=== PATIENT | female | born 1930 | race Caucasian/White ===

== ENCOUNTER 2018-06-27 18:49 | Inpatient (IN) | payer OTHER ==
[~2018-06-27] VITALS: Ht 129.5 cm; Wt 40.8 kg
[2018-06-27] MEDS ORDERED: CLONAZEPAM1 MG (19:19)
[2018-06-27] MEDS ORDERED: GABAPENTIN100 MG (19:20)
[2018-06-27] MEDS ORDERED: QUETIAPINE FUMA50 MG (19:20)
[2018-06-27] MEDS ORDERED: CARBIDOPA25 MG (19:21)
[2018-06-27] MEDS ORDERED: PRILOSEC10 MG (19:21)
[2018-06-27] MEDS ORDERED: ZANTAC150 M3 (19:21)
== END 2018-07-04 19:06 | disposition home or self-care (01) | DRG 177 ==
LOC: ER 18:49 → MEDJ 06-28 00:23 → SEC-K 06-28 00:23 → MEDJ 06-28 09:51
PROVIDERS: ADMIT Internal Medicine
PROC: 3E0F7GC Introduction of Other Therapeutic Substance into Respiratory Tract, Via Natural or Artificial Opening (ICD-10-PCS; principal; 2018-06-28)
PROC: 8E0ZXY6 Isolation (ICD-10-PCS; 2018-06-30)
PROC: 4A033R1 Measurement of Arterial Saturation, Peripheral, Percutaneous Approach (ICD-10-PCS; 2018-06-30)
PROC: B54PZZZ Ultrasonography of Bilateral Upper Extremity Veins (ICD-10-PCS; 2018-07-04)
DX: J69.0 Pneumonitis due to inhalation of food and vomit (principal); B37.1 Pulmonary candidiasis; N39.0 Urinary tract infection, site not specified; J15.1 Pneumonia due to Pseudomonas; J45.998 Other asthma; G20 Parkinson's disease; I10 Essential (primary) hypertension; E03.8 Other specified hypothyroidism; Z74.01 Bed confinement status; B96.29 Other Escherichia coli [E. coli] as the cause of diseases classified elsewhere

== ENCOUNTER 2018-07-11 08:48 | Inpatient (IN) | payer OTHER ==
[~2018-07-11] VITALS: Ht 157.5 cm; Wt 47.2 kg
[~2018-07-11 08:48] MED LIST: CARBIDOPA25 MG; CLONAZEPAM1 MG; GABAPENTIN100 MG; PRILOSEC10 MG; QUETIAPINE FUMA50 MG; ZANTAC150 M3
--- NOTE | 2018-07-11 14:31 | NUR ---
08:33AM- SE RECIBE PACIENTE DE PERSONAL DE AMBULANCIA LETARGICA, NO RESPONDIENDO A ESTIMULOS Y/O COMANDO DE VOZ. SE CONECTAR A MONITOR CARDIACO PRESENTANDO VITALES DE BP:75/51 P:57 T:97.5 R:29 P:69. SE SUCCIONA PACIENTE POR PERSONAL DE TERAPIA, SE CHELITA MUESTRAS DE ABG'S POR PERSONAL DE TERAPIA Y SE CHELITA MUESTRAS DE FROY BAJO MEDIDAS ASEPTICAS CBC, PRO BNP, CMP, PT+INR, PTT, CK MB, TROPONINA 1, CARDIAC PRO Y BLOOD CULTURE X3. SE CHELITA MUESTRAS DE ESPUTUM, UC Y UA DAMON ORDENADO. SE ADMINISTRA MEDICAMENTO SOLUMEDROL 125MG Y DEMARCO SERIE DE TERAPIAS. SE CANALIZA POR DOS PATENTES Y LIBRES DE EDEMA CON ANGIO #18 Y #20 SE ADMINISTRA UN 0.9NSS AT 100ML/HR Y MEDICAMENTO LEVOPHED 4MG/250ML AT 10ML/HR. SE CONSULTA A INTERNISTA DR. Ratna TEJADA, SE REALIZA PLACA PORTABLE, SE COLOCA NON REBREATHING MASK AL 100%. SE REALIZA EKG DAMON ORDEN MEDICA Y SE INSERTA [place] DE CATETER #16 BAJO MEDIDAS ESTERILES Y ASEPTICAS, SE OBSERVA ORINA AMARILLA-NARANJA EL CUAL SE RECOGEN MUESTRAS. SE MANTIENE BAJO OBSERVACION, CONECTADA A MONITOR CARDIACO, CON BARANDAS ELEVEDAS Y BOTON ACCESIBLE S LANDY OFRECE CUIDADO DE PIEL Y SE LE COLOCA EN EL AREA SACRAL ALLEVYN PATCH. SE ALEN TRANQUILA EN CAMA Y CON BARANDAS ELEVADAS.
--- NOTE | 2018-07-11 16:14 | NUR ---
SE RECIBE PTE LETARGICA ANQUILOSADA EN CAMA CON BARANDAS ELEVADAS.SE RECIBE PTE CANALIZADA EN MANO DERECHA Y BRAZO PAUL AREAS LIBRES DE EDEMA Y DE ENROJECIMIENTO. PTE CON NON REBREATHING AL 100%, SE RECIBE PTE CON DRIP DE LEVOPHED 4MG/250ML BAJANDO A 10ML/HR. SE RECIBE PTE CON DRIP DE .9NSS BAJANDO A 100ML/HR. SE RECIBE PTE CON [place] DRENANDO AL MOMENTO 25ML DE ORINA COLOR AMARILLO INTENSO.SE OBSERVA EDEMA EN EXTREMIDADES SUPERIORES E INFERIORES. PTE SE MANTIENE BAJO OBSERVACION POR CAMBIOS.
== END 2018-08-03 11:32 | disposition expired | DRG 177 ==
LOC: ER 08:48 → ICU-2 18:05 → ICU 07-12 13:52 → MEDJ 07-23 19:16
PROVIDERS: ADMIT Internal Medicine
PROC: 02HV33Z Insertion of Infusion Device into Superior Vena Cava, Percutaneous Approach (ICD-10-PCS; 2018-07-11)
PROC: 3E0F7GC Introduction of Other Therapeutic Substance into Respiratory Tract, Via Natural or Artificial Opening (ICD-10-PCS; 2018-07-11)
PROC: 4A033R1 Measurement of Arterial Saturation, Peripheral, Percutaneous Approach (ICD-10-PCS; 2018-07-11)
PROC: BW24ZZZ Computerized Tomography (CT Scan) of Chest and Abdomen (ICD-10-PCS; 2018-07-11)
PROC: 0T9B70Z Drainage of Bladder with Drainage Device, Via Natural or Artificial Opening (ICD-10-PCS; 2018-07-11)
PROC: B246ZZZ Ultrasonography of Right and Left Heart (ICD-10-PCS; 2018-07-12)
PROC: 8E0ZXY6 Isolation (ICD-10-PCS; 2018-07-13)
PROC: 3E0336Z Introduction of Nutritional Substance into Peripheral Vein, Percutaneous Approach (ICD-10-PCS; 2018-07-13)
PROC: 0W993ZX Drainage of Right Pleural Cavity, Percutaneous Approach, Diagnostic (ICD-10-PCS; principal; 2018-07-20)
PROC: 30233N1 Transfusion of Nonautologous Red Blood Cells into Peripheral Vein, Percutaneous Approach (ICD-10-PCS; 2018-07-23)
PROC: 4A12X4Z Monitoring of Cardiac Electrical Activity, External Approach (ICD-10-PCS; 2018-07-23)
PROC: 0W9930Z Drainage of Right Pleural Cavity with Drainage Device, Percutaneous Approach (ICD-10-PCS; 2018-07-28)
DX: J69.0 Pneumonitis due to inhalation of food and vomit (principal); J80 Acute respiratory distress syndrome; R65.21 Severe sepsis with septic shock; B37.1 Pulmonary candidiasis; J91.8 Pleural effusion in other conditions classified elsewhere; E87.2 Acidosis; J93.81 Chronic pneumothorax; G20 Parkinson's disease; F02.80 Dementia in other diseases classified elsewhere, unspecified severity, without behavioral disturbance, psychotic disturbance, mood disturbance, and anxiety; Z74.01 Bed confinement status; J44.9 Chronic obstructive pulmonary disease, unspecified; E03.9 Hypothyroidism, unspecified; R13.19 Other dysphagia; B96.1 Klebsiella pneumoniae [K. pneumoniae] as the cause of diseases classified elsewhere; I48.2 Chronic atrial fibrillation; Z79.01 Long term (current) use of anticoagulants; D69.59 Other secondary thrombocytopenia; Z45.2 Encounter for adjustment and management of vascular access device; Z66 Do not resuscitate